=== PATIENT | female | born 1995 | race Caucasian/White ===

== ENCOUNTER 2022-04-14 06:30 | Inpatient (IN) | payer OTHER ==
[2022-04-14] MEDS: ELECTROLYTE-148 SOLN 1,000 ML IV SCH ×2 (06:45→08:00)
[2022-04-14] MEDS ORDERED: ACETAMINOPHEN 325 MG TABLET (FP) PO PRN ×2 (07:59→10:03)
[2022-04-14] MEDS ORDERED: ONDANSETRON 4 MG/2 ML VIAL IVPUSH PRN (07:59)
[2022-04-14] MEDS ORDERED: IBUPROFEN 600 MG TABLET (FP) PO PRN (07:59)
[2022-04-14 08:03] VITALS: BMI 27.4
[2022-04-14] MEDS ORDERED: CITRIC ACID/SODIUM CITRATE 30 ML UNIT-DOSE CUP PO ONE (08:20)
[2022-04-14] MEDS ORDERED: METHYLERGONOVINE MALEATE 0.2 MG/1 ML AMP IM PRN (10:03)
[2022-04-14] MEDS ORDERED: IBUPROFEN 800 MG/8 ML IJ IVPB PRN (10:03)
[2022-04-14] MEDS: FERROUS SO4 325 MG TABLET (FP) PO SCH (18:39)
[2022-04-14] MEDS ORDERED: oxyCODONE HCL 5 MG TABLET PO PRN (22:03)
[2022-04-15] MEDS: OXYTOCIN 20 UNITS in 0.9% NS 20 UNIT/1,000 ML INFUS.BAG IV SCH (00:50)
[2022-04-15] MEDS: SIMETHICONE 80 MG TAB.CHEW (FP) PO PRN ×4 (02:08→20:16)
[2022-04-15] MEDS: IBUPROFEN 600 MG TABLET (FP) PO PRN ×4 (02:08→20:16)
[2022-04-15 08:23] LABS: BASO % 0.3 % (0-2.0); EOS % 1.4 % (0-4.5); HEMATOCRIT 34.2 % (32.4-45.2); HEMOGLOBIN 11.3 GM/dL (10.7-15.3); LYMPH % 17.2 % (8-40); MCH 29.6 pg (25.7-33.7); MCHC 33.1 g/dl (32.0-36.0); MEAN CELL VOLUME 89.7 fl (80-96); MEAN PLT VOLUME 9.9 fl (7.5-11.1); MONO % 9.5 % (3.8-10.2); NEUT % 71.6 % (42.8-82.8); PLATELET COUNT 222 10^3/uL (134-434); RBC 3.81 M/mm3 (3.60-5.2); RDW 15.6 % (11.6-15.6); WHITE BLOOD COUNT 9.4 K/mm3 (4.0-10.0)
[2022-04-15] MEDS: PRENATAL VITAMINS W/ FOLIC ACID TABLET (FP) PO SCH (09:04)
[2022-04-15] MEDS: FERROUS SO4 325 MG TABLET (FP) PO SCH ×2 (09:04→18:27)
[2022-04-15] MEDS ORDERED: BISACODYL 10 MG SUPP.RECT RC PRN (10:03)
[2022-04-16] MEDS: IBUPROFEN 600 MG TABLET (FP) PO PRN ×2 (01:56→19:37)
[2022-04-16] MEDS: SIMETHICONE 80 MG TAB.CHEW (FP) PO PRN ×2 (01:56→19:38)
[2022-04-16] MEDS: OXYTOCIN 20 UNITS in 0.9% NS 20 UNIT/1,000 ML INFUS.BAG IV SCH (03:50)
[2022-04-16] MEDS: ELECTROLYTE-148 SOLN 1,000 ML IV SCH (03:51)
[2022-04-16] MEDS: PRENATAL VITAMINS W/ FOLIC ACID TABLET (FP) PO SCH (09:28)
[2022-04-16] MEDS: FERROUS SO4 325 MG TABLET (FP) PO SCH ×2 (09:28→17:28)
[2022-04-17 07:06] LABS: HEMOGLOBIN 11.1 GM/dL (10.7-15.3); MCH 29.7 pg (25.7-33.7); MCHC 32.8 g/dl (32.0-36.0); MEAN CELL VOLUME 90.7 fl (80-96); MEAN PLT VOLUME 9.4 fl (7.5-11.1); PLATELET COUNT 260 10^3/uL (134-434); RBC 3.75 M/mm3 (3.60-5.2); RDW 15.4 % (11.6-15.6); WHITE BLOOD COUNT 8.8 K/mm3 (4.0-10.0)
[2022-04-17 09:23] LABS: ANISOCYTOSIS 2+; MACROCYTOSIS 0; OVALOCYTE 2+; TEAR DROP CELLS 1+
[2022-04-17] MEDS: PRENATAL VITAMINS W/ FOLIC ACID TABLET (FP) PO SCH (10:25)
[2022-04-17] MEDS: FERROUS SO4 325 MG TABLET (FP) PO SCH (10:25)
[2022-04-17] MEDS: IBUPROFEN 600 MG TABLET (FP) PO PRN (10:45)
[2022-04-17 13:59] VITALS: BP 127/70; PULSE 88; TEMP 97.8
== END 2022-04-17 15:20 | disposition home or self-care (01) | DRG 540 ==
LOC: JLDR 06:30 → J3W 11:00
PROVIDERS: ADMIT Obstetrics & Gynecology; ATTEND Obstetrics & Gynecology
PROC: 10D00Z1 Extraction of Products of Conception, Low, Open Approach (ICD-10-PCS; principal; 2022-04-14)
DX: O34.211 Maternal care for low transverse scar from previous cesarean delivery (principal); O69.81X0 Labor and delivery complicated by cord around neck, without compression, not applicable or unspecified; Z3A.39 39 weeks gestation of pregnancy; Z37.0 Single live birth
CPT/HCPCS: 36415; 85025; 88307-TC

== ENCOUNTER 2022-09-09 13:28 | Emergency (ER) | payer OTHER ==
[2022-09-09 13:48] VITALS: BP 119/74; PULSE 65; RESP 20; TEMP 98; BMI 28.3
[2022-09-09] MEDS ORDERED: IBUPROFEN 600 MG TABLET (FP) PO ONE ×2 (14:25→14:29)
[2022-09-09] MEDS ORDERED: diazePAM 2 MG TABLET PO ONE (14:25)
[2022-09-09] MEDS ORDERED: LIDOCAINE 5% TOPICAL PATCH TP ONE (14:27)
[2022-09-09] MEDS ORDERED: LIDOCAINE 5% TOPICAL PATCH ONE (14:29)
[2022-09-09] MEDS ORDERED: diazePAM 2 MG TABLET ONE (14:30)
[2022-09-09 16:29] LABS: EPI CELLS >36 /uL (0-25.1); HYALINE CASTS 7 /uL (0-3.1); URINE APPEARANCE CLOUDY; URINE BACTERIA >9,000 /uL (0-1359); URINE BILIRUBIN NEGATIVE (NEGATIVE); URINE COLOR YELLOW; URINE GLUCOSE (UA) NEGATIVE (NEGATIVE); URINE KETONE 1+ (NEGATIVE); URINE LEUK ESTERASE 1+ (NEGATIVE); URINE NITRITE POSITIVE (NEGATIVE); URINE PROTEIN TRACE (NEGATIVE); URINE RBC 27 /uL (0-23.9); URINE WBC 86 /uL (0-25.8)
[2022-09-09 16:39] LABS: HCG,QUALITATIVE URINE Negative
[2022-09-09] MEDS ORDERED: LIDOCAINE PATCH REMOVAL MC SCH (22:00)
== END 2022-09-09 15:38 | disposition home or self-care (01) ==
LOC: JERFT 13:28
DX: M54.50 Low back pain, unspecified (principal)
CPT/HCPCS: 81003; 84703; 87086; 87186; 99283-25

== ENCOUNTER 2022-12-08 09:24 | Emergency (ER) | payer OTHER ==
[2022-12-08 09:44] VITALS: TEMP 98.1; BMI 24.4
[2022-12-08 11:15] LABS: BASO % 0.7 % (0-2.0); EOS % 1.3 % (0-4.5); HEMATOCRIT 40.9 % (32.4-45.2); HEMOGLOBIN 13.4 GM/dL (10.7-15.3); LYMPH % 22.2 % (8-40); MCHC 32.8 g/dl (32.0-36.0); MEAN CELL VOLUME 94.7 fl (80-96); MEAN PLT VOLUME 8.5 fl (7.5-11.1); MONO % 6.7 % (3.8-10.2); NEUT % 69.1 % (42.8-82.8); PLATELET COUNT 228 10^3/uL (134-434); RBC 4.32 M/mm3 (3.60-5.2); RDW 13.3 % (11.6-15.6); WHITE BLOOD COUNT 8.5 K/mm3 (4.0-10.0)
[2022-12-08 11:18] LABS: EPI CELLS >36 /uL (0-25.1); HYALINE CASTS 2 /uL (0-3.1); PH,URINE 5.5 (5.0-8.0); URINE APPEARANCE CLOUDY; URINE BACTERIA >9,000 /uL (0-1359); URINE BILIRUBIN NEGATIVE (NEGATIVE); URINE COLOR DK YELLOW; URINE GLUCOSE (UA) NEGATIVE (NEGATIVE); URINE KETONE TRACE (NEGATIVE); URINE LEUK ESTERASE 1+ (NEGATIVE); URINE NITRITE POSITIVE (NEGATIVE); URINE PROTEIN 1+ (NEGATIVE); URINE RBC 3519 /uL (0-23.9); URINE WBC 111 /uL (0-25.8)
[2022-12-08 11:37] LABS: CALCIUM 9.3 mg/dL (8.5-10.1)
[2022-12-08 11:38] LABS: ALBUMIN 4.2 g/dl (3.4-5.0); BLOOD UREA NITROGEN 10.3 mg/dL (7-18)
[2022-12-08 11:41] LABS: CREATININE 0.7 mg/dL (0.55-1.3)
[2022-12-08 11:43] LABS: BILIRUBIN,TOTAL 0.6 mg/dL (0.2-1); TOT PROT 7.6 g/dl (6.4-8.2)
[2022-12-08] MEDS ORDERED: CEPHALEXIN MONOHYDRATE 500 MG CAPSULE (UD) PO ONE (11:43)
[2022-12-08] MEDS ORDERED: CEPHALEXIN MONOHYDRATE 500 MG CAPSULE (UD) ONE (11:59)
[2022-12-08] MEDS ORDERED: SODIUM CHLORIDE 1,000 ML IV STA (14:12)
[2022-12-08 14:17] VITALS: BP 104/52; PULSE 63; RESP 20
== END 2022-12-08 14:54 | disposition home or self-care (01) ==
LOC: JER 09:24
DX: O23.591 Infection of other part of genital tract in pregnancy, first trimester (principal); O20.9 Hemorrhage in early pregnancy, unspecified; Z3A.09 9 weeks gestation of pregnancy
CPT/HCPCS: 36415; 76817-TC; 80053; 81003; 84702; 85025; 86850; 86900; 86901; 99284-25

== ENCOUNTER 2023-03-01 00:14 | Emergency (ER) | payer OTHER ==
[2023-03-01 00:25] VITALS: BP 118/70; PULSE 77; RESP 18; TEMP 97.9; BMI 25.4
[2023-03-01] MEDS ORDERED: LIDOCAINE 5% TOPICAL PATCH TP ONE (02:36)
[2023-03-01] MEDS ORDERED: ACETAMINOPHEN 325 MG TABLET (FP) PO ONE (02:36)
[2023-03-01] MEDS ORDERED: ACETAMINOPHEN 325 MG TABLET (FP) ONE (02:42)
[2023-03-01 02:59] LABS: PH,URINE 6.5 (5.0-8.0); URINE APPEARANCE CLEAR; URINE BILIRUBIN NEGATIVE (NEGATIVE); URINE COLOR YELLOW; URINE GLUCOSE (UA) NEGATIVE (NEGATIVE); URINE KETONE TRACE (NEGATIVE); URINE LEUK ESTERASE NEGATIVE (NEGATIVE); URINE NITRITE NEGATIVE (NEGATIVE); URINE PROTEIN NEGATIVE (NEGATIVE)
== END 2023-03-01 04:17 | disposition home or self-care (01) ==
LOC: JER 00:14
DX: O26.891 Other specified pregnancy related conditions, first trimester (principal); O21.9 Vomiting of pregnancy, unspecified; M54.50 Low back pain, unspecified; R68.83 Chills (without fever); R09.81 Nasal congestion; R50.9 Fever, unspecified; R53.83 Other fatigue; R53.1 Weakness; Z20.822 Contact with and (suspected) exposure to COVID-19
CPT/HCPCS: 76817-TC; 81003; 87086; 87186; 99284-25

== ENCOUNTER 2023-05-16 19:54 | Emergency (ER) | payer OTHER ==
[2023-05-16 19:59] VITALS: BP 108/57; PULSE 88; RESP 16; TEMP 98.6; BMI 22.5
[2023-05-16] MEDS ORDERED: SODIUM CHLORIDE 0.9% 500 ML INFUS.BAG IV ONE (20:18)
[2023-05-16 20:42] LABS: EPI CELLS >36 /uL (0-25.1); HYALINE CASTS 1 /uL (0-3.1); URINE APPEARANCE CLEAR; URINE BACTERIA 1160 /uL (0-1359); URINE BILIRUBIN NEGATIVE (NEGATIVE); URINE COLOR YELLOW; URINE GLUCOSE (UA) NEGATIVE (NEGATIVE); URINE KETONE TRACE (NEGATIVE); URINE LEUK ESTERASE 2+ (NEGATIVE); URINE NITRITE NEGATIVE (NEGATIVE); URINE PROTEIN NEGATIVE (NEGATIVE); URINE RBC 25 /uL (0-23.9); URINE WBC 72 /uL (0-25.8)
[2023-05-16 21:04] LABS: BASO % 0.7 % (0-2.0); EOS % 1.2 % (0-4.5); HEMATOCRIT 37.9 % (32.4-45.2); HEMOGLOBIN 13.1 GM/dL (10.7-15.3); LYMPH % 23.9 % (8-40); MCH 31.6 pg (25.7-33.7); MCHC 34.5 g/dl (32.0-36.0); MEAN CELL VOLUME 91.7 fl (80-96); MEAN PLT VOLUME 9.1 fl (7.5-11.1); NEUT % 68.2 % (42.8-82.8); PLATELET COUNT 209 10^3/uL (134-434); RBC 4.13 M/mm3 (3.60-5.2); RDW 13.8 % (11.6-15.6); WHITE BLOOD COUNT 9.4 K/mm3 (4.0-10.0)
[2023-05-16 21:19] LABS: POTASSIUM 4.2 mmol/L (3.5-5.1)
[2023-05-16 21:21] LABS: BLOOD UREA NITROGEN 13.5 mg/dL (7-18); CALCIUM 8.9 mg/dL (8.5-10.1)
[2023-05-16 21:22] LABS: ALBUMIN 3.6 g/dl (3.4-5.0)
[2023-05-16 21:25] LABS: CREATININE 0.6 mg/dL (0.55-1.3)
[2023-05-16 21:26] LABS: BILIRUBIN,TOTAL 0.2 mg/dL (0.2-1); TOT PROT 7.1 g/dl (6.4-8.2)
[2023-05-16] MEDS ORDERED: CEFTRIAXONE 1 GM/50 ML BAG ONE (22:09)
[2023-05-16] MEDS ORDERED: CEFTRIAXONE 1,000 MG in DEXTROSE 5%-WATER - 50 ML IVPB ONE (22:22)
== END 2023-05-16 22:56 | disposition home or self-care (01) ==
LOC: JER 19:54
DX: O26.892 Other specified pregnancy related conditions, second trimester (principal); R10.9 Unspecified abdominal pain; R51.9 Headache, unspecified; O26.812 Pregnancy related exhaustion and fatigue, second trimester; R40.0 Somnolence; O21.9 Vomiting of pregnancy, unspecified; O23.42 Unspecified infection of urinary tract in pregnancy, second trimester; N39.0 Urinary tract infection, site not specified; Z3A.16 16 weeks gestation of pregnancy
CPT/HCPCS: 36415; 76815-TC; 80053; 81003; 85025; 87086; 87186; 99284-25

== ENCOUNTER 2023-10-28 08:17 | Inpatient (IN) | payer OTHER ==
[2023-10-28] MEDS: LACTATED RINGERS SOLUTION 1,000 ML/1,000 ML INFUS.BAG IV SCH (08:30)
[2023-10-28 09:24] VITALS: BMI 29.7
[2023-10-28] MEDS ORDERED: morphine SULFATE/PF 1 MG/2 ML (2cc Syringe - QUVA) ONE (10:10)
[2023-10-28] MEDS ORDERED: FENTANYL CITRATE/PF 50 MCG/ML VIAL ONE (10:10)
[2023-10-28] MEDS ORDERED: CITRIC ACID/SODIUM CITRATE 30 ML UNIT-DOSE CUP PO ONE (10:15)
[2023-10-28] MEDS ORDERED: LIDOCAINE HCL/PF 2% SDV 5ML VIAL ONE (10:19)
[2023-10-28] MEDS ORDERED: ePHEDrine SULFATE 50 MG/1 ML AMPULE ONE (10:29)
[2023-10-28] MEDS ORDERED: OXYTOCIN 10 UNITS/ML VIAL ONE (10:31)
[2023-10-28] MEDS ORDERED: KETOROLAC TROMETHAMINE 30 MG/1 ML VIAL ONE (10:47)
[2023-10-28] MEDS: OXYTOCIN 20 UNITS in 0.9% NS 20 UNIT/1,000 ML INFUS.BAG IV SCH ×2 (11:00→20:30)
[2023-10-28] MEDS ORDERED: OXYTOCIN 20 UNITS in 0.9% NS 20 UNIT/1,000 ML INFUS.BAG IV ONE (11:01)
[2023-10-28] MEDS ORDERED: WITCH HAZEL 50% (TUCKS) 40 PAD/JAR PAD TP PRN (11:05)
[2023-10-28] MEDS ORDERED: METHYLERGONOVINE MALEATE 0.2 MG/1 ML AMP IM PRN (11:05)
[2023-10-28] MEDS ORDERED: IBUPROFEN 800 MG/8 ML IJ IVPB PRN (11:05)
[2023-10-29] MEDS: LACTATED RINGERS SOLUTION 1,000 ML/1,000 ML INFUS.BAG IV SCH ×2 (03:41→12:15)
[2023-10-29 07:25] LABS: BASO % 0.6 % (0-2.0); EOS % 1.9 % (0-4.5); HEMATOCRIT 32.4 % (32.4-45.2); HEMOGLOBIN 10.9 GM/dL (10.7-15.3); LYMPH % 16.4 % (8-40); MCH 31.8 pg (25.7-33.7); MCHC 33.5 g/dl (32.0-36.0); MEAN CELL VOLUME 94.8 fl (80-96); MEAN PLT VOLUME 8.4 fl (7.5-11.1); MONO % 7.8 % (3.8-10.2); NEUT % 73.3 % (42.8-82.8); PLATELET COUNT 163 10^3/uL (134-434); RBC 3.41 M/mm3 (3.60-5.2); RDW 13.5 % (11.6-15.6); WHITE BLOOD COUNT 8.4 K/mm3 (4.0-10.0)
[2023-10-29] MEDS: IBUPROFEN 600 MG TABLET (FP) PO PRN ×2 (08:44→18:27)
[2023-10-29] MEDS: SIMETHICONE 80 MG TAB.CHEW (FP) PO PRN (08:45)
[2023-10-29] MEDS: PRENATAL VITAMINS W/ FOLIC ACID TABLET (FP) PO SCH (09:23)
[2023-10-29] MEDS: ACETAMINOPHEN 325 MG TABLET (FP) PO PRN (09:25)
[2023-10-29] MEDS ORDERED: BISACODYL 10 MG SUPP.RECT RC PRN (11:05)
[2023-10-29] MEDS: OXYTOCIN 20 UNITS in 0.9% NS 20 UNIT/1,000 ML INFUS.BAG IV SCH (12:15)
[2023-10-29] MEDS: oxyCODONE HCL 5 MG TABLET PO PRN (12:39)
[2023-10-30] MEDS: SIMETHICONE 80 MG TAB.CHEW (FP) PO PRN ×3 (05:06→17:54)
[2023-10-30] MEDS: IBUPROFEN 600 MG TABLET (FP) PO PRN ×3 (05:06→17:54)
[2023-10-30] MEDS: oxyCODONE HCL 5 MG TABLET PO PRN ×2 (05:54→20:00)
[2023-10-30] MEDS: ACETAMINOPHEN 325 MG TABLET (FP) PO PRN (08:01)
[2023-10-30] MEDS: PRENATAL VITAMINS W/ FOLIC ACID TABLET (FP) PO SCH (09:19)
[2023-10-31 08:18] LABS: BASO % 0.6 % (0-2.0); EOS % 6.3 % (0-4.5); HEMATOCRIT 31.6 % (32.4-45.2); HEMOGLOBIN 10.8 GM/dL (10.7-15.3); LYMPH % 29.6 % (8-40); MCH 32.9 pg (25.7-33.7); MCHC 34.2 g/dl (32.0-36.0); MEAN CELL VOLUME 96.1 fl (80-96); MEAN PLT VOLUME 8.5 fl (7.5-11.1); MONO % 7.9 % (3.8-10.2); NEUT % 55.6 % (42.8-82.8); PLATELET COUNT 190 10^3/uL (134-434); RBC 3.28 M/mm3 (3.60-5.2); RDW 14.1 % (11.6-15.6); WHITE BLOOD COUNT 7.1 K/mm3 (4.0-10.0)
[2023-10-31] MEDS: IBUPROFEN 600 MG TABLET (FP) PO PRN ×2 (10:33→18:56)
[2023-10-31] MEDS: PRENATAL VITAMINS W/ FOLIC ACID TABLET (FP) PO SCH (10:40)
[2023-11-01] MEDS: IBUPROFEN 600 MG TABLET (FP) PO PRN (10:02)
[2023-11-01] MEDS: PRENATAL VITAMINS W/ FOLIC ACID TABLET (FP) PO SCH (10:02)
[2023-11-01 12:25] VITALS: BP 122/79; PULSE 92; RESP 16; TEMP 99.2
== END 2023-11-01 12:15 | disposition home or self-care (01) | DRG 540 ==
LOC: JLDR 08:17 → J3W 12:05
PROVIDERS: ADMIT Obstetrics & Gynecology; ATTEND Obstetrics & Gynecology
PROC: 10D00Z1 Extraction of Products of Conception, Low, Open Approach (ICD-10-PCS; principal; 2023-10-28)
DX: O34.211 Maternal care for low transverse scar from previous cesarean delivery (principal); O69.89X0 Labor and delivery complicated by other cord complications, not applicable or unspecified; Z3A.39 39 weeks gestation of pregnancy; Z37.0 Single live birth
CPT/HCPCS: 36415; 80053; 85025; 85610; 86780; 86850; 86900; 86901; 88307-TC

== ENCOUNTER 2024-03-25 04:22 | Day surgery (SDC) | payer OTHER ==
[2024-03-18 14:47] VITALS: BMI 22.6
[~2024-03-25 04:22] MED LIST: LACTATED RINGERS SOLUTION 1,000 ML IV SCH; ONDANSETRON 4 MG/2 ML VIAL IVPUSH PRN; oxyCODONE HCL 5 MG TABLET PO PRN
[2024-03-25] MEDS ORDERED: BUPIVACAINE HCL/PF 0.5% (5MG/ML) 10 ML VIAL ONE (07:35)
[2024-03-25] MEDS ORDERED: ONDANSETRON 4 MG/2 ML VIAL ONE (07:43)
[2024-03-25] MEDS ORDERED: DEXAMETHASONE SOD PHOSPHATE 4 MG/1 ML VIAL ONE (07:43)
[2024-03-25] MEDS ORDERED: KETOROLAC TROMETHAMINE 30 MG/1 ML VIAL ONE (07:43)
[2024-03-25] MEDS ORDERED: LIDOCAINE HCL/PF 2% SDV 5ML VIAL ONE (07:43)
[2024-03-25] MEDS ORDERED: SEVOFLURANE 250 ML BTL ONE (07:46)
[2024-03-25] MEDS ORDERED: ROCURONIUM BROMIDE 50 MG/5 ML SYRINGE ONE (07:47)
[2024-03-25] MEDS ORDERED: PROPOFOL 20 ML ONE ×2 (07:48→08:36)
[2024-03-25] MEDS ORDERED: FENTANYL CITRATE/PF 50 MCG/ML VIAL ONE (07:49)
[2024-03-25] MEDS ORDERED: MIDAZOLAM HCL 2 MG/2 ML SINGLE DOSE VIAL ONE (07:49)
[2024-03-25] MEDS ORDERED: ACETAMINOPHEN INJECTION 100 ML IVPB ONE (07:52)
[2024-03-25] MEDS: BUPIVACAINE HCL/PF 0.5% (5 MG/ML) 30 ML VIAL IJ ONE ×3 (08:26)
[2024-03-25] MEDS ORDERED: HYDROmorphone HCl 2 MG/ML VIAL ONE (08:26)
[2024-03-25] MEDS ORDERED: SODIUM CHLORIDE 0.9% P/F 10 ML VIAL IJ ONE (08:27)
[2024-03-25] MEDS ORDERED: SUGAMMADEX SODIUM 200 MG/2 ML VIAL ONE (08:45)
[2024-03-25 11:01] VITALS: RESP 18
[2024-03-25 13:41] VITALS: BP 92/60; PULSE 78; TEMP 97.8
== END 2024-03-25 13:43 | disposition home or self-care (01) ==
LOC: JASU-SURG 04:22
PROVIDERS: ATTEND Student in an Organized Health Care Education/Training Program
PROC: 0UB74ZX Excision of Bilateral Fallopian Tubes, Percutaneous Endoscopic Approach, Diagnostic (ICD-10-PCS; principal; 2024-03-25 08:00)
DX: Z30.2 Encounter for sterilization (principal)
CPT/HCPCS: 81025; 88302-TC; 94760; J0131

== ENCOUNTER 2025-05-11 02:21 | Emergency (ER) | payer OTHER ==
[2025-05-11 02:26] VITALS: BP 118/90; PULSE 89; RESP 18; TEMP 98.6; BMI 23.6
== END 2025-05-11 03:26 | disposition home or self-care (01) ==
LOC: JER 02:21
DX: R21 Rash and other nonspecific skin eruption (principal); L29.9 Pruritus, unspecified
CPT/HCPCS: 99283-25